=== PATIENT | male | born 1985 | race Caucasian/White ===

== ENCOUNTER 2016-10-31 13:17 | Emergency (ER) | payer MEDICAID ==
--- NOTE | 2016-10-31 13:15 | EDPHY ---
H & P Time Seen by Provider: 10/31/16 13:27 HPI/ROS: CHIEF COMPLAINT: M1 hold HISTORY OF PRESENT ILLNESS: This patient is a 31-year-old male with history of depression and anxiety who presents to the Emergency Department via EMS from the [facility] under M1 hold for acute suicidal ideation. He has a history of hospitalizations for suicidal ideation since age 11. He was seen by his psychiatrist this morning and referred to the Crisis Center for acute thoughts of harming himself. He states that he would overdose if given the opportunity. He has attempted to overdose in the past but never "on the right medication." He has a history of alcohol abuse and recently relapsed, though his last drink was Friday. He has been compliant with his current medications and denies any recent changes to medications within the last few weeks. He has been sick recently with a chronic productive cough. He also complains of indigestion and heartburn not appropriately managed with use of Tums. He has no additional focal medical complaints. REVIEW OF SYSTEMS: Constitutional: No fever, no chills Eyes: No visual changes ENT: No sore throat Respiratory: No cough, no shortness of breath Cardiac: No chest pain Gastrointestinal: No nausea, no vomiting, no abdominal pain Genitourinary: No hematuria, no dysuria Musculoskeletal: No leg pain or swelling Skin: No rash Neurological: No headache, no numbness, no weakness Psychiatric: No depression Past Medical/Surgical History: Depression and anxiety Social History: History of alcoholism Physical Exam: General Appearance: Alert, no distress Eyes: Pupils equal and round, no conjunctival pallor or injection ENT, Mouth: Mucous membranes moist Neck: Normal inspection Respiratory: Lungs are clear to auscultation Cardiovascular: Regular rate and rhythm Gastrointestinal: Abdomen is soft and non- tender Neurological: A&O, nonfocal, normal gait Skin: Warm and dry, no rash Extremities: Nontender, no pedal edema Psychiatric: Mood and affect normal Constitutional: Initial Vital Signs Temperature (C) 37 C 10/31/16 13:40 Heart Rate 98 10/31/16 13:40 Respiratory Rate 16 10/31/16 13:40 Blood Pressure 146/92 H 10/31/16 13:40 O2 Sat (%) 92 10/31/16 13:40 O2 Delivery Mode Room Air Allergies/Adverse Reactions: No Known Allergies Allergy (Verified 09/12/15 13:37) Home Medications: Medication Instructions Recorded Gabapentin 02/25/16 LAMOTRIGINE 02/25/16 Latuda 02/25/16 Lorazepam 02/25/16 Medical Decision Making ED Course/Re-evaluation: 31-year-old male with history of depression and anxiety presents under M1 hold from the Crisis Center for acute thoughts of suicide. He reports a plan to overdose, which apparently has been his chose method in the past. He additionally complains of ongoing productive cough and indigestion. He is [ afebrile] with normal vitals signs at time of presentation. His exam is normal apart from reported SI. Will proceed with labs and UA for medical clearance prior to mental health evaluation. 1412: Labs reviewed and are unremarkable. UA tox screen is positive for marijuana and benzodiazepines, which is aligned with the patient's reported history. He is medically cleared by myself at this time for mental health evaluation. 4pm: this pt was seen by mental health. Looking for inpt mental health placement. Differential Diagnosis: Differential diagnosis includes though it is not limited to suicidal ideation, overdose, acute psychosis, self-injury, alcohol withdrawal. - Data Points Laboratory Results: Laboratory Results 10/31/16 13:24 10/31/16 13:24 10/31/16 10/31/16 10/31/16 13:24 13:24 13:24 WBC 8.23 10^3/uL 10^3/uL (3.80-9.50) RBC 5.81 10^6/uL 10^6/uL (4.40-6.38) Hgb 16.8 g/dL g/dL (13.7-17.5) Hct 49.3 % % (40.0-51.0) MCV 84.9 fL fL (81.5-99.8) MCH 28.9 pg pg (27.9-34.1) MCHC 34.1 g/dL g/dL (32.4-36.7) RDW 12.8 % % (11.5-15.2) Plt Count 218 10^3/uL 10^3/uL (150-400) MPV 10.0 fL fL (8.7-11.7) Neut % (Auto) 68.1 % % (39.3-74.2) Lymph % (Auto) 22.1 % % (15.0-45.0) [place] % (Auto) 6.3 % % (4.5-13.0) Eos % (Auto) 2.3 % % (0.6-7.6) Baso % (Auto) 0.5 % % (0.3-1.7) Nucleat RBC Rel Count 0.0 % % (0.0-0.2) Absolute Neuts (auto) 5.60 10^3/uL 10^3/uL (1.70-6.50) Absolute Lymphs (auto) 1.82 10^3/uL 10^3/uL (1.00-3.00) Absolute Monos (auto) 0.52 10^3/uL 10^3/uL (0.30-0.80) Absolute Eos (auto) 0.19 10^3/uL 10^3/uL (0.03-0.40) Absolute Basos (auto) 0.04 10^3/uL 10^3/uL (0.02-0.10) Absolute Nucleated RBC 0.00 10^3/uL 10^3/uL (0-0.01) Immature Gran % 0.7 % % (0.0-1.1) Immature Gran # 0.06 10^3/uL 10^3/uL (0.00-0.10) Sodium 139 mEq/L mEq/L (134-144) Potassium 3.5 mEq/L mEq/L (3.5-5.2) Chloride 99 mEq/L mEq/L (97-110) Carbon Dioxide 27 mEq/l mEq/l (22-31) Anion Gap 13 mEq/L mEq/L (8-16) BUN 19 mg/dL mg/dL (7-23) Creatinine 0.9 mg/dL mg/dL (0.7-1.3) Estimated GFR > 60 Glucose 103 mg/dL H mg/dL (70-100) Calcium 9.8 mg/dL mg/dL (8.5-10.4) Urine Opiates Screen NEGATIVE (NEGATIVE) Urine Barbiturates NEGATIVE (NEGATIVE) Ur Phencyclidine Scrn NEGATIVE (NEGATIVE) Ur Amphetamine Screen NEGATIVE (NEGATIVE) U Benzodiazepines Scrn NON-NEGATIVE H (NEGATIVE) Urine Cocaine Screen NEGATIVE (NEGATIVE) U Marijuana (THC) Screen NON-NEGATIVE H (NEGATIVE) Ethyl Alcohol < 10 mg/dL mg/dL (0-10) Medications Given: Discontinued Medications Lorazepam (Ativan) 1 mg PO EDNOW ONE Stop: 10/31/16 13:47 Last Admin: 10/31/16 13:52 Dose: 1 mg Departure - Departure Disposition: Other Psych, Not [facility] Clinical Impression: Suicidal ideation, Severe major depression Condition: Good Referrals: NONE *PRIMARY CARE P,. [Unknown] - As per Instructions Report Scribed for: Mimi Bailey Report Scribed by: Marleni Greco Date of Report: 10/31/16 Time of Report: 13:15 Physician Review and Approval Statement: 10/31/16 13:15 Portions of this note were transcribed by a certified medical dosimetrist. I personally performed a history, physical exam, medical decision making, and confirmed accuracy of information the transcribed note.
[2016-10-31] MEDS ORDERED: LORazepam 1 MG TAB PO ONE (13:46)
[2016-10-31 14:00] LABS: % IMMATURE GRANULYOCYTES 0.7 % (0.0-1.1); ABSOLUTE IMMATURE GRANULOCYTES 0.06 10^3/uL (0.00-0.10); ADD DIFF? NO; ADD MORPH? NO; ADD SCAN? NO; ATYPICAL LYMPHOCYTE FLAG 10 (0-99); FRAGMENT RBC FLAG 0 (0-99); HEMATOCRIT 49.3 % (40.0-51.0); HEMOGLOBIN 16.8 g/dL (13.7-17.5); LEFT SHIFT FLG 0 (0-99); LIPEMIA HEMOLYSIS FLAG 90 (0-99); MEAN CELL HEMOGLOBIN 28.9 pg (27.9-34.1); MEAN CELL HEMOGLOBIN CONCENTR. 34.1 g/dL (32.4-36.7); MEAN CELL VOLUME 84.9 fL (81.5-99.8); PLATELET CLUMPS FLAG 0 (0-99); PLATELET COUNT 218 10^3/uL (150-400); RED BLOOD CELL COUNT 5.81 10^6/uL (4.40-6.38); RED CELL DISTRIBUTION WIDTH 12.8 % (11.5-15.2)
[2016-10-31 14:06] LABS: ANION GAP 13 mEq/L (8-16); CALCIUM 9.8 mg/dL (8.5-10.4); CARBON DIOXIDE 27 mEq/l (22-31); CHLORIDE 99 mEq/L (97-110); CREATININE 0.9 mg/dL (0.7-1.3); ETHANOL SERUM < 10 mg/dL (0-10); GLOMERULAR FILTRATION RATE > 60; GLUCOSE 103 mg/dL (70-100); POTASSIUM 3.5 mEq/L (3.5-5.2); SODIUM 139 mEq/L (134-144)
[2016-10-31] MEDS ORDERED: LIDOCAINE 2% VISCOUS 15 ML UDCUP PO ONE (17:54)
[2016-10-31] MEDS ORDERED: NICOTINE 14 MG/24 HR PATCH TD ONE (17:55)
[2016-10-31] MEDS ORDERED: MAG HYDROX/AL HYDROX/SIMETH 30 ML UDCUP PO ONE (17:55)
[2016-10-31] MEDS ORDERED: PANTOPRAZOLE SODIUM 40 MG TAB PO ONE ×2 (19:52→19:55)
[2016-10-31 20:08] VITALS: BP 139/87; PULSE 82; RESP 18; TEMP 97.9; O2SAT 95
== END 2016-10-31 20:12 ==
LOC: EDUNIT#
DX: R45.851 Suicidal ideations (principal); F32.2 Major depressive disorder, single episode, severe without psychotic features
CPT/HCPCS: 80305; G0480

== ENCOUNTER 2018-01-24 02:08 | Inpatient (IN) | payer MEDICAID, OTHER ==
[2018-01-24] MEDS ORDERED: OLANZapine DISINTEGR 10 MG TAB ONE (03:21)
[2018-01-24] MEDS ORDERED: OLANZapine DISINTEGR 10 MG TAB PO ONE ×2 (03:22→21:47)
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
[2018-01-24 03:34] LABS: PLATELET COUNT 286 10^3/uL (150-400)
[2018-01-24] MEDS ORDERED: LORazepam 1 MG TAB ONE ×2 (09:30→13:53)
[2018-01-24] MEDS ORDERED: LORazepam 1 MG TAB PO ONE ×3 (09:32→19:08)
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
--- NOTE | 2018-01-25 10:10 | ASMTTCLDSP ---
TLC Discharge Disposition Disposition: Answers: Admit Disposition Notes: Notes: Medicaid authorization has been received for the following days: 01/25/18, 01/26/18 and 01/27/18. On 01/27 contact Janet at [phone]. Auth# [id number] Discharge Concerns/Recommendations: Notes: In consultation with [facility] ED physician, Dr Leonard MD ,and on-call psychiatrist, Dr Matt MD, both concurred that Pt does not appears to meet 27-65 criteria requiring psychiatric hospitalization as pt does not appear to be at risk of harm to self/ others/ due to grave disability due to a mental illness condition. It has been recommended by Dr Gutierrez that pt could benefit from the treatment an ATU will offer and authorization from Medicaid for an ATU has been received. Was patient given the Answers: Yes Inpatient Behavioral Health Prohibited Belongings List while in the ED? For inpatient Dr Matt MD admission, the following psychiatrist agreed to accept patient for admission to Behavioral Health ([facility]): Date Signed: 01/25/2018 10:09 AM Electronically Signed By:Kat Conde
[2018-01-25] MEDS ORDERED: MAG HYDROX/AL HYDROX/SIMETH 30 ML UDCUP PO PRN (11:13)
[2018-01-25] MEDS ORDERED: ACETAMINOPHEN 325 MG TAB PO PRN (11:13)
[2018-01-25] MEDS ORDERED: MAGNESIUM HYDROXIDE 30 ML UDCUP PO PRN (11:13)
--- NOTE | 2018-01-25 11:13 | ASMTBHMTP ---
Master Treatment Plan Master Treatment Plan Answers: Depressed Mood with for: Suicidal Ideation Date: 01/25/2018 Diagnosis on Admission: Bipolar Disorder, PTSD, and social anxiety Expected length of stay: 3-5 Days Reason for admission: Notes: Per [facility] Evaluation - Pt. is a 32 year old male who came to the ED voluntarily, by taxi. He had initially gone to the [facility]'s detox program. Per ED physician's report, the pt presented with SI, without a plan. He expressed anger and agitation and was given a dose of Zyprexa with improvement in his symptoms. Pt. sat on his bed during the evaluation. He was calm, responded to all questions without an increase in agitation and was often tearful. Several times he spoke of feeling overwhelmed and not knowing what he was going to do; at these times he consistently cried. Per pt he normally lives with his 2 younger children and their mother. He describes his as ill with severe depression that is not well treated. he learned during therapy that he is not able to care for both his and children. They were having a great deal of conflict and pt told his that they could no longer parent together and that she needed to move in with family. His moved next door and he reports daily fighting that lasted for 3 weeks. Last night he decided that the situation was not healthy for the children and decided to leave, saying goodbye to them. He went to a friend's ; they drank, then his friend too him to the [facility]. Pt. reports a significant depressive mood; "I'm more depressed than ever". He stated he is not sleeping or eating well, he has no interest or the energy to interact with others, periods of crying, mood lability and hopelessness. He reports pervasive thoughts of dying since he was 11 years old. He has made somewhat disorganized attempts, drinking and taking pills. When asked how he would kill himself if he decided to, he again spoke of pill and of find and killing himself with a gun, but denied any present intent or plan. He asked to be hospitalized. Patient's stated presenting problems: Notes: is currently in a depressive episode, and they are not agreeing on how to get better. Pt. stated he came into the hospital for help with everything. Patient's goals for treatment: Notes: Setup as many outpatient services as possible and get on helpful medications. Patient's strengths: Notes: There's a good person in here somewhere Identify supports outside of hospital: Notes: [facility] outpatient providers Discharge criteria: Notes: Suicidal ideation will resolve and patient will have a plan to safely manage recurrent suicidal ideation. Initial disposition plan/considerations: Notes: Get as many outpatient services as possible setup, and possibly stay at a respite or mental health/substance use treatment center. Master Treatment Plan Required Signatures Psychiatrist signature: Answers: Lonny Gutierrez MD: RN on-shift signature: Answers: RN: Patient signature: Answers: Patient: Date Signed: 01/25/2018 11:13 AM Electronically Signed By:Lynn Menon
[2018-01-25] MEDS ORDERED: PROMETHAZINE HCL 25 MG TAB PO PRN (11:16)
[2018-01-25] MEDS ORDERED: IBUPROFEN 200 MG TAB PO PRN (11:16)
[2018-01-25] MEDS ORDERED: chlordiazePOXIDE 25 MG CAP PO PRN (11:16)
[2018-01-25] MEDS ORDERED: THIAMINE HCL 100 MG TAB PO ONE (11:16)
[2018-01-25] MEDS ORDERED: PROMETHAZINE HCL 25 MG SUPPR PR PRN (11:16)
[2018-01-25] MEDS: OLANZapine DISINTEGR 10 MG TAB PO PRN ×2 (12:50→19:20)
--- NOTE | 2018-01-25 14:00 | PDMN ---
Medical Necessity Medical necessity: [facility] [place] B013IP PTSD Adult IP care and B903IP Substance related d/ o, IP care: 32 y/o w/ PTSD, etoh use disorder, hx ECT treatments,
[2018-01-25] MEDS: NICOTINE POLACRILEX 2 MG GUM B PRN ×2 (14:14→19:20)
--- NOTE | 2018-01-25 14:15 | PDHOSCONS ---
History and Physical - Chief Complaint "I am beyond sad" - History of Present Illness 32 year old man who reports hs of bipolar, PTSD, aDHD, social anxiety and alcohol abuse presenting with multiple complaints around his current home life and feeling overwhelmingly sad and afraid that he would hurt himself. He notes she has been in an "IOP" but states that it is not focused on substance abuse but rather on trauma. He States that overall the biggest issues he is dealing with his the relationship with his , he feels she is not taking care o herself and has been doing various things to undermine him including calling the benefits office to attempt to get him off of the food stamps and other things, he believes she is stealing from him and has been unable to even care for herself in ways like bathing. He currently lives with her and their 2 children aged 2.5 and 8 and he is no longer sure he can live with her anymore. He went to the crisis center today as he was afraid that if he did not do that he would kill himslef. He notes he has tried killing himself before by overdosing on alcohol and pills, and his current plan [place] heroin and believes he could easily OD and from that. He does not usually use heroin per his report. He notes that he is so far beyond sad that he is 'ready not to be conscious in this life anymore' but acknowledges that he is conflicted about that as he does not want to leave his children. In terms of his health otherwise, he notes that he has been dealing with a bout of bronchitis recently, he recently completed a course of azithromycin. He was given inhalers but when they did not work in the first day he stopped using them. He continues to feel congested and has a productive cough. No fever or chils, no difficulyt breathing. History Information - Allergies/Home Medication List Allergies/Adverse Reactions: No Known Allergies Allergy (Verified 01/24/18 02:17) Home Medications: Dextroamphetamine/Amphetamine [Adderall Xr 30 mg Capsule] 60 mg PO DAILY [Last Taken 01/23/18] [place] Carbonate [[place] Carbonate Cap 300 mg (*)] 300 mg PO 01/25/18 [Last Taken Unknown] I have personally reviewed and updated: family history, medical history, social history, surgical history - Past Medical History psychiatric history (ADHD, bipolar, PTSD, anxiety) - Surgical History Reports: no pertinent surgical hx - Social History Smoking Status: Heavy smoker Alcohol Use: Heavy Drug Use: None Review of Systems Review of Systems: ROS: 10pt was reviewed & negative except for what was stated in HPI & below Physical Exam Physical Exam: Temp Pulse Resp BP Pulse Ox 36.6 C 64 16 118/73 96 01/25/18 13:03 01/25/18 13:03 01/25/18 13:03 01/25/18 13:03 01/25/18 13:03 Constitutional: no apparent distress, appears nourished Eyes: PERRL Ears, Nose, Mouth, Throat: moist mucous membranes, hearing normal Cardiovascular: regular rate and rhythym, no murmur, rub, or gallop Respiratory: no respiratory distress, no rales or rhonchi, clear to auscultation Gastrointestinal: normoactive bowel sounds, soft, non-tender abdomen Skin: warm Musculoskeletal: full muscle strength Neurologic: AAOx3 Psychiatric: not encephalopathic, thought process linear, depressed, suicidal ideation Lab Data & Imaging Review 01/24/18 02:37 01/24/18 02:37 WBC 9.68 10^3/uL (3.80-9.50) H 01/24/18 02:37 RBC 5.86 10^6/uL (4.40-6.38) 01/24/18 02:37 Hgb 16.9 g/dL (13.7-17.5) 01/24/18 02:37 Hct 49.7 % (40.0-51.0) 01/24/18 02:37 MCV 84.8 fL (81.5-99.8) 01/24/18 02:37 MCH 28.8 pg (27.9-34.1) 01/24/18 02:37 MCHC 34.0 g/dL (32.4-36.7) 01/24/18 02:37 RDW 14.8 % (11.5-15.2) 01/24/18 02:37 Plt Count 286 10^3/uL (150-400) 01/24/18 02:37 MPV 10.4 fL (8.7-11.7) 01/24/18 02:37 Neut % (Auto) 61.0 % (39.3-74.2) 01/24/18 02:37 Lymph % (Auto) 27.1 % (15.0-45.0) 01/24/18 02:37 [place] % (Auto) 6.9 % (4.5-13.0) 01/24/18 02:37 Eos % (Auto) 3.9 % (0.6-7.6) 01/24/18 02:37 Baso % (Auto) 0.5 % (0.3-1.7) 01/24/18 02:37 Nucleat RBC Rel Count 0.0 % (0.0-0.2) 01/24/18 02:37 Absolute Neuts (auto) 5.90 10^3/uL (1.70-6.50) 01/24/18 02:37 Absolute Lymphs (auto) 2.62 10^3/uL (1.00-3.00) 01/24/18 02:37 Absolute Monos (auto) 0.67 10^3/uL (0.30-0.80) 01/24/18 02:37 Absolute Eos (auto) 0.38 10^3/uL (0.03-0.40) 01/24/18 02:37 Absolute Basos (auto) 0.05 10^3/uL (0.02-0.10) 01/24/18 02:37 Absolute Nucleated RBC 0.00 10^3/uL (0-0.01) 01/24/18 02:37 Immature Gran % 0.6 % (0.0-1.1) 01/24/18 02:37 Immature Gran # 0.06 10^3/uL (0.00-0.10) 01/24/18 02:37 Sodium 143 mEq/L (135-145) 01/24/18 02:37 Potassium 3.6 mEq/L (3.3-5.0) 01/24/18 02:37 Chloride 106 mEq/L (97-110) 01/24/18 02:37 Carbon Dioxide 23 mEq/l (22-31) 01/24/18 02:37 Anion Gap 14 mEq/L (8-16) 01/24/18 02:37 BUN 11 mg/dL (7-23) 01/24/18 02:37 Creatinine 0.8 mg/dL (0.7-1.3) 01/24/18 02:37 Estimated GFR > 60 01/24/18 02:37 Glucose 106 mg/dL (70-100) H 01/24/18 02:37 Calcium 9.1 mg/dL (8.5-10.4) 01/24/18 02:37 Total Bilirubin 0.5 mg/dL (0.1-1.4) 01/24/18 02:37 AST 23 IU/L (17-59) 01/24/18 02:37 ALT 33 IU/L (21-72) 01/24/18 02:37 Alkaline Phosphatase 59 IU/L (38-126) 01/24/18 02:37 Total Protein 6.6 g/dL (6.3-8.2) 01/24/18 02:37 Albumin 4.3 g/dL (3.5-5.0) 01/24/18 02:37 Urine Opiates Screen NEGATIVE (NEGATIVE) 01/24/18 02:40 Urine Barbiturates NEGATIVE (NEGATIVE) 01/24/18 02:40 Ur Phencyclidine Scrn NEGATIVE (NEGATIVE) 01/24/18 02:40 Ur Amphetamine Screen NEGATIVE (NEGATIVE) 01/24/18 02:40 U Benzodiazepines Scrn NEGATIVE (NEGATIVE) 01/24/18 02:40 Urine Cocaine Screen NEGATIVE (NEGATIVE) 01/24/18 02:40 U Marijuana (THC) Screen NEGATIVE (NEGATIVE) 01/24/18 02:40 Ethyl Alcohol 216 mg/dL (0-10) H 01/24/18 02:37 Assessment & Plan Assessment: Depression (Acute) Bipolar disorder (Acute) 32 yo M with hx of reportedly bipolar d/o presenting with depression and suicidal ideation #depressed mood nos/suicidal ideation: patient notes feeling afraid he may kill himself and reports of worsening mood due to issues regarding his current situation and family life. Admitted to IP psychiatry for full psychiatric evaluation, at this point do not see any reason why patient cannot pursue any treatment felt appropriate by primary service # acute bronchitis: lungs sound clear and overall suspect this was likely viral bronchitis that is resolving, will start combivent and follow sxs, if not continuing to improve or if fever recurs would obtain f/u chest xray # etoh use disorder: patient connected wtih [facility] and reports being in IOP, would certainly benefit from that, CM to follow # Thank you for this consultation. Medicine will be available peripherally should questions arise during Jose' stay.
[2018-01-25] MEDS: IPRATROPIUM/ALBUTEROL 4GM MDI IH SCH ×3 (14:30→20:19)
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
[2018-01-26] MEDS: IPRATROPIUM/ALBUTEROL 4GM MDI IH SCH ×4 (07:01→19:41)
[2018-01-26] MEDS: FOLIC ACID 1 MG TAB PO SCH (08:13)
[2018-01-26] MEDS: OLANZapine DISINTEGR 10 MG TAB PO PRN ×2 (08:14→11:33)
[2018-01-26] MEDS: THIAMINE HCL 100 MG TAB PO SCH (08:14)
[2018-01-26] MEDS: MULTIVITAMINS 1 EACH TAB PO SCH (08:16)
[2018-01-26] MEDS: NICOTINE POLACRILEX 2 MG GUM B PRN ×2 (08:17→16:59)
--- NOTE | 2018-01-26 10:57 | SOAPPROG ---
SOAP Progress Note Assessment/Plan: Assessment: Bipolar I Disorder, Severe. Alcohol use disorder, severe. Cannabis use disorder, severe. No improvement noted. (see subjective/objective note). Patient is not safe to discharge at this time as patient continues to exhibit signs of randa, and express randa symptoms. Patient requires continued inpatient care because of current randa, and requires inpatient level of care to stabilize in order to no longer be gravely disabled due to mental illness. Patient could benefit from continued inpatient hospitalization for crisis stabilization, safety, and medication evaluation. Plan: (1) Psychotropic medications: After reviewing options, risks, and benefits patient agrees to continue current medications with following changes: Zyprexa Zydis 10 mg po QHS and [place] ER 600 mg BID. No other medication changes at this time as more time is needed to determine ongoing tolerability and efficacy. Plan is to continue to observe patient for response and side effects from medications, and ongoing monitoring and evaluation. (2) Review with patient informed consent and recommendations for psychotropic medication treatment listed below (3) Labs: lithium level AM prior to AM dose, A1c, fasting lipid panel (4) Therapy: continue milieu and group therapy (5) Further investigation including gathering information from patients relatives and review of past case records to inform treatment plan. (6) Safety/Wellness plan and follow-up outpatient appointments to be established prior to discharge. Next steps are for patient to meet with caretaker grounds to plan a safe discharge plan and establish outpatient services for ongoing treatment. (7) Confer with inpatient treatment team regarding treatment plan. (8) Legal status: M1; to sign in voluntary when M1 expires (9) Consider discharge on if patient is in stable condition, safe, and has a safe discharge plan. (10) Substance abuse interventions: alcohol and cannabis PSYCHOTROPIC MEDICATION TREATMENT INFORMED CONSENT and RECOMMENDATIONS: Review nature of condition, diagnosis, and prognosis. Review nature and purpose of psychotropic medication treatment. Review type of psychotropic medications being ordered. Review risk and benefits of psychotropic medication treatment. Review probable length of time patient will need to take medications. Review risk and benefits of not undergoing psychotropic medication treatment. Review alternative treatments to psychotropic medications. Review psychotropic medications contraindications, drug-drug interactions, side effects, and importance of reporting any side effects to a psychiatric provider or nurse during inpatient hospitalization, and upon discharge to patients psychiatric outpatient provider, primary care provider, or other health primary care nurse. Review importance of asking a nurse, psychiatric provider, or primary care provider any questions or problems concerning the psychotropic medications. Verify patient understands the information that has been provided, and understands, accepts, and agrees to psychotropic medications. Review patients safety plan and importance of patient to report to staff while hospitalized if patient is ever a danger to self/others, or unable to care for self, and upon discharge, the importance for patient to contact [facility] or [facility], or go to the nearest emergency room, if patient is ever a danger to self/others, or unable to care for self. Recommend that upon discharge patient establish medication management treatment with a psychiatric provider, establishes routine therapy appointments, and follow-up with primary care provider. Verify patient understands and agrees to these recommendations. 01/26/18 10:59 Subjective: Following up with patient for evaluation of mood and safety. Patient reports, "Not feeling good today, a lot of anxiety. Racing thoughts all the time, cant sleep, dangerously irritable, anxiety." Patient expresses the following psychiatric symptoms decreased need for sleep, irritability, racing thoughts. Patient reports taking medications as prescribed, and describes response to medications as poor. Patient does not report undesirable side effects from the medications, and agrees to continue current medications. Patient reports appetite as good, and reports eating all meals. Patient describes getting 1-2 hours of sleep. Patient describes history of randa s/s including irritable and expansive mood, decreased sleep, racing thoughts, pressured speech, distractible , and substance abuse (risky behaviors). Patient reports his OP psychiatrist was discussing with him starting lithium. Patient agrees to trial of Zyprexa Zydis 10 mg po QHS and lithium ER 600 mg po QHS. Objective: Vital Signs Temp Pulse Resp BP Pulse Ox 36.5 C 60 14 119/64 95 01/26/18 06:00 01/26/18 06:00 01/26/18 06:00 01/26/18 06:00 01/26/18 06:00 NURSING REPORT: Consulted with nursing for update on patients progress in treatment. Nurses report patient is engaged in treatment, is not attending groups, slept 10 hours, expresses the following psychiatric symptoms: irritable , racing thoughts, reports feeling on edge; exhibits the following psychiatric symptoms: irritable, agitated, is eating all meals, is agreeable to medications and taking as prescribed with no report of side effects, with no s/s of EPS/ akathisia, and denies SI/HI, denies A/V hallucinations, and denies delusions. HAND MOLD MAKER UPDATE: setting up OP appointments and referrals for substance abuse treatment. MSE: The patient is a well-nourished male looking older than chronological age. Attire is appropriate and dress is casual. Grooming status is appropriate. Ambulation is independent. Gait is normal and coordinated. Posture is normal and relaxed. Eye contact is appropriate. Motor activity is appropriate with purposeful, organized, coordinated movements; with no involuntary movements. Attitude is cooperative and friendly. Patient appears distractible and does not relate well to this interviewer. Language production is spontaneous. Rate is pressured. Latency of response is shortened, with irritable tone, and high volume, and amount is hypertalkative. Articulation is clear. Patient reports mood as depressed with expansive, incongruent and inappropriate affect. Patients thought process is non-linear and tangential. Associations are loose. Patient does report SI with no plan; denies HS. Patient denies auditory, visual hallucinations. Patient denies delusions. Patient does not appear to be attending to internal stimuli. Patients attention and concentration are poor. Patient is oriented to person, place, time. Patients insight is poor. Patients judgment is poor. No evidence of/evidence of gross cognitive dysfunction at any point during the interview. No evidence of/evidence of apparent dysfunction in recent or remote memory. SUBSTANCE ABUSE BRIEF INTERVENTION: Brief intervention regarding the risks of alcohol and cannabis abuse is provided to patient with goal to reduce the risk of harm that could result from the continued use of alcohol and cannabis, with the general aim to investigate the problem, raise awareness of problem, develop a solution with the patient, recommend a specific change or activity, and motivate the patient toward change. Assess substance abuse behavior and give supportive advice about harm reduction, recommend a reduction in hazardous/at- risk consumption patterns, and facilitate referrals for additional specialized treatment with med care manager. Intermediate goal is for the patient to stop using alcohol and cannabis and attend OP substance abuse treatment. Intervention focus on intermediate goals to allow for more immediate success in the treatment process to keep the patient motivated. Review following with patient: Cannabis use risks: Short-term use: impaired short-term memory, impaired motor coordination, altered judgement, in high doses paranoia and psychosis. Long-term use addiction, diminished life satisfaction and achievement, symptoms of chronic bronchitis, and increased risk of chronic psychosis disorders if predisposition to such disorders. In withdrawal anger, aggression irritability, anxiety and nervousness, decreased appetite or weight loss, restlessness, and sleep difficulties with strange dreams. Alcohol/Binge Drinking risks: short-term: injuries, violence, alcohol poisoning, risky sexual behaviors. Long-term: high blood pressure, stroke, liver disease, digestive problems, cancer, learning and memory problems, depression and anxiety, social problems, and alcohol dependence. - Time Spent With Patient Time Spent With Patient: 25 minutes, met with patient individually. - Pending Discharge Pending Discharge Within 24 Hours: No Pending Discharge Within 48 Hours: No ICD10 Worksheet Patient Problems: Problems Problem Status Onset Bipolar disorder Acute Depression Acute
[2018-01-26] MEDS: LITHIUM CARBONATE ER 300 MG TAB PO SCH ×2 (11:34→19:41)
--- NOTE | 2018-01-26 12:43 | ASMTCMCOM ---
CM Note CM Note Notes: met with patient check in, patient noted isolating teary today. He states that he has had multiple psychosocial factors he feels are threatening his children and contributing to his mood and safety. Pt admits to a 1/10 scale of feelings of anxiety/depression/ suicidallity that he is at a 7 or 8 and would like to be more stable to a 3 or 4 he notes his support system is his tx team, and states that he has been in contact with them that they have offered him some alternatives when he discharges. Pt requests assistance receiving JUAN DIEGO from his CM Yocasta Marsh or Jessica Holly so he can have some contact with his family. Provided pt with blank JUAN DIEGO from [facility] and reported stated si to nursing staff. Date Signed: 01/26/2018 12:42 PM Electronically Signed By:Sabra Cooper
[2018-01-26] MEDS: OLANZapine DISINTEGR 10 MG TAB PO SCH (19:41)
[2018-01-27] MEDS: IPRATROPIUM/ALBUTEROL 4GM MDI IH SCH ×4 (06:38→18:30)
--- NOTE | 2018-01-27 08:06 | SOAPPROG ---
SOAP Progress Note Assessment/Plan: Assessment: Bipolar I Disorder, Severe, complicated by substance abuse. Alcohol use disorder, severe. Cannabis use disorder, severe. Slight improvement noted, notably improved sleep (see subjective/objective note). Patient is not safe to discharge at this time as patient continues to exhibit signs of randa, and express randa symptoms. Patient requires continued inpatient care because of current randa, and requires inpatient level of care to stabilize to no longer be gravely disabled due to mental illness. Patient could benefit from continued inpatient hospitalization for crisis stabilization, safety, and medication evaluation. Plan: (1) Psychotropic medications: After reviewing options, risks, and benefits patient agrees to continue current medications with following changes: Prazosin 1 mg po QHS for nightmares. No other medication changes at this time as more time is needed to determine ongoing tolerability and efficacy. Plan is to continue to observe patient for response and side effects from medications, and ongoing monitoring and evaluation. (2) Review with patient informed consent and recommendations for psychotropic medication treatment listed below (3) Labs: lithium level AM prior to AM dose (4) Therapy: continue milieu and group therapy (5) Further investigation including gathering information from patients relatives and review of past case records to inform treatment plan. (6) Safety/Wellness plan and follow-up outpatient appointments to be established prior to discharge. Next steps are for patient to meet with manager critical care unit to plan a safe discharge plan and establish outpatient services for ongoing treatment. (7) Confer with inpatient treatment team regarding treatment plan. (8) Legal status: M1; to sign in voluntary when M1 expires (9) Consider discharge on if patient is in stable condition, safe, and has a safe discharge plan. (10) Substance abuse interventions: alcohol and cannabis PSYCHOTROPIC MEDICATION TREATMENT INFORMED CONSENT and RECOMMENDATIONS: Review nature of condition, diagnosis, and prognosis. Review nature and purpose of psychotropic medication treatment. Review type of psychotropic medications being ordered. Review risk and benefits of psychotropic medication treatment. Review probable length of time patient will need to take medications. Review risk and benefits of not undergoing psychotropic medication treatment. Review alternative treatments to psychotropic medications. Review psychotropic medications contraindications, drug-drug interactions, side effects, and importance of reporting any side effects to a psychiatric provider or nurse during inpatient hospitalization, and upon discharge to patients psychiatric outpatient provider, primary care provider, or other health pharmacy customer care specialist. Review importance of asking a nurse, psychiatric provider, or primary care provider any questions or problems concerning the psychotropic medications. Verify patient understands the information that has been provided, and understands, accepts, and agrees to psychotropic medications. Review patients safety plan and importance of patient to report to staff while hospitalized if patient is ever a danger to self/others, or unable to care for self, and upon discharge, the importance for patient to contact [facility] or [facility], or go to the nearest emergency room, if patient is ever a danger to self/others, or unable to care for self. Recommend that upon discharge patient establish medication management treatment with a psychiatric provider, establishes routine therapy appointments, and follow-up with primary care provider. Verify patient understands and agrees to these recommendations. 01/27/18 08:07 Subjective: Following up with patient for evaluation of mood and safety. Patient reports, "Not doing too good, slept better last night, but a lot of nightmares. My daughter did not want to talk to me last night, super depressed about that. Not sure what my ex is telling her. I did sleep better last night though. Medications are working." Patient expresses the following psychiatric symptoms irritable, agitated, and nightmares. Patient reports taking medications as prescribed, and describes response to medications as poor. Patient does not report undesirable side effects from the medications, and agrees to continue current medications. Patient reports appetite as good, and reports eating all meals. Patient describes getting 6 hours of sleep. Patient agrees to trial of Prazosin 1 mg po QHS for nightmares. Patient does not report SI. Objective: Vital Signs Temp Pulse Resp BP Pulse Ox 36.6 C 70 14 139/71 H 96 01/27/18 06:00 01/27/18 06:00 01/27/18 06:00 01/27/18 06:00 01/27/18 06:00 NURSING REPORT: Consulted with nursing for update on patients progress in treatment. Nurses report patient is engaged in treatment, is not attending groups, slept 9.5 hours, expresses the following psychiatric symptoms: irritable , reports feeling on edge; exhibits the following psychiatric symptoms: irritable, agitated; is eating all meals, is agreeable to medications and taking as prescribed with no report of side effects, with no s/s of EPS/ akathisia, and denies SI/HI, denies A/V hallucinations, and denies delusions. ORDER EXPEDITER UPDATE: setting up OP appointments and referrals for substance abuse treatment. MSE: The patient is a well-nourished male looking older than chronological age. Attire is appropriate and dress is casual. Grooming status is appropriate. Ambulation is independent. Gait is normal and coordinated. Posture is normal and relaxed. Eye contact is appropriate. Motor activity is appropriate with purposeful, organized, coordinated movements; with no involuntary movements. Attitude is cooperative and friendly. Patient appears distractible and does not relate well to this interviewer. Language production is spontaneous. Rate is pressured. Latency of response is shortened, with irritable tone, and high volume, and amount is normal. Articulation is clear. Patient reports mood as depressed with expansive, incongruent and inappropriate affect. Patients thought process is non-linear and tangential. Associations are loose. Patient does not report SI/HI. Patient denies auditory, visual hallucinations. Patient denies delusions. Patient does not appear to be attending to internal stimuli. Patients attention and concentration are poor. Patient is oriented to person, place, time. Patients insight is poor. Patients judgment is poor. No evidence of gross cognitive dysfunction at any point during the interview. No evidence of apparent dysfunction in recent or remote memory. SUBSTANCE ABUSE BRIEF INTERVENTION: Brief intervention regarding the risks of alcohol and cannabis abuse is provided to patient with goal to reduce the risk of harm that could result from the continued use of alcohol and cannabis, with the general aim to investigate the problem, raise awareness of problem, develop a solution with the patient, recommend a specific change or activity, and motivate the patient toward change. Assess substance abuse behavior and give supportive advice about harm reduction, recommend a reduction in hazardous/at- risk consumption patterns, and facilitate referrals for additional specialized treatment with manager critical care unit. Intermediate goal is for the patient to stop using alcohol and cannabis and attend OP substance abuse treatment. Intervention focus on intermediate goals to allow for more immediate success in the treatment process to keep the patient motivated. Review following with patient: Cannabis use risks: Short-term use: impaired short-term memory, impaired motor coordination, altered judgement, in high doses paranoia and psychosis. Long-term use addiction, diminished life satisfaction and achievement, symptoms of chronic bronchitis, and increased risk of chronic psychosis disorders if predisposition to such disorders. In withdrawal anger, aggression irritability, anxiety and nervousness, decreased appetite or weight loss, restlessness, and sleep difficulties with strange dreams. Alcohol/Binge Drinking risks: short-term: injuries, violence, alcohol poisoning, risky sexual behaviors. Long-term: high blood pressure, stroke, liver disease, digestive problems, cancer, learning and memory problems, depression and anxiety, social problems, and alcohol dependence. - Time Spent With Patient Time Spent With Patient: 15 minutes, met with patient individually. - Pending Discharge Pending Discharge Within 24 Hours: No Pending Discharge Within 48 Hours: No ICD10 Worksheet Patient Problems: Problems Problem Status Onset Alcohol use disorder, severe, dependence Acute Bipolar I disorder with randa Acute Cannabis use disorder, severe, dependence Acute
[2018-01-27] MEDS: MULTIVITAMINS 1 EACH TAB PO SCH (08:09)
[2018-01-27] MEDS: LITHIUM CARBONATE ER 300 MG TAB PO SCH ×2 (08:09→18:30)
[2018-01-27] MEDS: OLANZapine DISINTEGR 10 MG TAB PO PRN ×2 (08:09→12:59)
[2018-01-27] MEDS: FOLIC ACID 1 MG TAB PO SCH (08:10)
[2018-01-27] MEDS: THIAMINE HCL 100 MG TAB PO SCH (08:10)
[2018-01-27] MEDS: NICOTINE POLACRILEX 2 MG GUM B PRN ×2 (08:32→12:38)
--- NOTE | 2018-01-27 14:38 | ASMTCMCOM ---
CM Note CM Note Notes: CC contacted hospital liaison for follow up appts. She will get back with this sign writer hand when she is available, inquired about the possibility of having a Respite Bed. She noted, that it is on a day by day basis and as of yesterday there are no beds available. Date Signed: 01/27/2018 02:37 PM Electronically Signed By:Fernandez Monroe
[2018-01-27] MEDS: OLANZapine DISINTEGR 10 MG TAB PO SCH (18:31)
[2018-01-27] MEDS ORDERED: PRAZOSIN HCL 1 MG CAP PO SCH (21:00)
[2018-01-28 06:31] VITALS: BP 134/64
[2018-01-28] MEDS: IPRATROPIUM/ALBUTEROL 4GM MDI IH SCH (07:38)
[2018-01-28] MEDS: NICOTINE POLACRILEX 2 MG GUM B PRN (07:38)
[2018-01-28] MEDS: OLANZapine DISINTEGR 10 MG TAB PO PRN (07:38)
[2018-01-28] MEDS ORDERED: OLANZapine DISINTEGR 10 MG TAB PO SCH (07:57)
[2018-01-28] MEDS ORDERED: PRAZOSIN HCL 1 MG CAP PO SCH (07:58)
--- NOTE | 2018-01-28 08:01 | SOAPPROG ---
SOAP Progress Note Assessment/Plan: Assessment: Bipolar I Disorder, Severe, current randa, complicated by substance abuse. Alcohol use disorder, severe. Cannabis use disorder, severe. Slight improvement noted, notably improved sleep based on staff report (see subjective/ objective note). Patient is not safe to discharge at this time as patient continues to exhibit signs of randa, and express randa symptoms. Patient requires continued inpatient care because of current randa, and requires inpatient level of care to stabilize to no longer be gravely disabled due to mental illness. Patient could benefit from continued inpatient hospitalization for crisis stabilization, safety, and medication evaluation. Plan: (1) Psychotropic medications: After reviewing options, risks, and benefits patient agrees to continue current medications with following changes: Prazosin 2 mg po QHS for nightmares, Zyrexa Zydis 15 mg po QHS, and increase total Zyprexa dose in 24 hours to 35 mg for acute stabilization. No other medication changes at this time as more time is needed to determine ongoing tolerability and efficacy. Plan is to continue to observe patient for response and side effects from medications, and ongoing monitoring and evaluation. (2) Review with patient informed consent and recommendations for psychotropic medication treatment listed below (3) Labs: lithium level AM prior to AM dose (4) Therapy: continue milieu and group therapy (5) Further investigation including gathering information from patients relatives and review of past case records to inform treatment plan. (6) Safety/Wellness plan and follow-up outpatient appointments to be established prior to discharge. Next steps are for patient to meet with nursing care partner to plan a safe discharge plan and establish outpatient services for ongoing treatment. (7) Confer with inpatient treatment team regarding treatment plan. (8) Legal status: voluntary (9) Consider discharge on if patient is in stable condition, safe, and has a safe discharge plan. (10) Substance abuse interventions: alcohol and cannabis PSYCHOTROPIC MEDICATION TREATMENT INFORMED CONSENT and RECOMMENDATIONS: Review nature of condition, diagnosis, and prognosis. Review nature and purpose of psychotropic medication treatment. Review type of psychotropic medications being ordered. Review risk and benefits of psychotropic medication treatment. Review probable length of time patient will need to take medications. Review risk and benefits of not undergoing psychotropic medication treatment. Review alternative treatments to psychotropic medications. Review psychotropic medications contraindications, drug-drug interactions, side effects, and importance of reporting any side effects to a psychiatric provider or nurse during inpatient hospitalization, and upon discharge to patients psychiatric outpatient provider, primary care provider, or other health hemodialysis patient care specialist. Review importance of asking a nurse, psychiatric provider, or primary care provider any questions or problems concerning the psychotropic medications. Verify patient understands the information that has been provided, and understands, accepts, and agrees to psychotropic medications. Review patients safety plan and importance of patient to report to staff while hospitalized if patient is ever a danger to self/others, or unable to care for self, and upon discharge, the importance for patient to contact [facility] or [facility], or go to the nearest emergency room, if patient is ever a danger to self/others, or unable to care for self. Recommend that upon discharge patient establish medication management treatment with a psychiatric provider, establishes routine therapy appointments, and follow-up with primary care provider. Verify patient understands and agrees to these recommendations. 01/28/18 08:02 Subjective: Following up with patient for evaluation of mood and safety. Patient reports, "I slept horrible last night, couldn't get to sleep or stay a sleep. A bunch of nightmares and cant get control of my thoughts. Can we increase the Zyprexa ? Typically takes a higher dose for it to work for me." Patient expresses the following psychiatric symptoms racing thoughts, pressure to keep talking, irritable, agitated, poor sleep, and nightmares. Patient reports taking medications as prescribed, and describes response to medications as poor. Patient does not report undesirable side effects from the medications, and agrees to continue current medications. Patient reports appetite as good, and reports eating all meals. Patient describes getting 3-4 hours of sleep. Patient expresses SI with no specific plan. Patient states all he can think about right now is "wanting to drink" (alcohol). Patient reports no symptoms of acute alcohol withdrawal. Patient does express desire/cravings to drink. Objective: Vital Signs Temp Pulse Resp BP Pulse Ox 36.6 C 87 18 134/64 H 98 01/28/18 06:00 01/28/18 06:00 01/28/18 06:00 01/28/18 06:00 01/28/18 06:00 NURSING REPORT: Consulted with nursing for update on patients progress in treatment. Nurses report patient is engaged in treatment, is not attending groups, slept 10.5 hours, expresses the following psychiatric symptoms: irritable, racing thoughts, unable to slow down his thoughts; exhibits the following psychiatric symptoms: irritable, agitated, hypertalkative; is eating all meals, is agreeable to medications and taking as prescribed with no report of side effects, with no s/s of EPS/akathisia, and denies SI/HI, denies A/V hallucinations, and denies delusions. STAMP ANALYST UPDATE: setting up OP appointments and referrals for substance abuse treatment. MSE: The patient is a well-nourished male looking older than chronological age. Attire is appropriate and dress is casual. Grooming status is appropriate. Ambulation is independent. Gait is normal and coordinated. Posture is normal and relaxed. Eye contact is appropriate. Motor activity is appropriate with purposeful, organized, coordinated movements; with no involuntary movements. Attitude is cooperative and friendly. Patient appears distractible and does not relate well to this interviewer. Language production is spontaneous. Rate is pressured. Latency of response is shortened, with irritable tone, and high volume, and amount is hypertalkative. Articulation is clear. Patient reports mood as depressed with expansive, incongruent and inappropriate affect. Patients thought process is non-linear and tangential. Associations are loose. Patient does report SI with no plan. Patient denies HI. Patient denies auditory, visual hallucinations. Patient denies delusions. Patient does not appear to be attending to internal stimuli. Patients attention and concentration are poor, appears distractible. Patient is oriented to person, place, time. Patients insight is poor. Patients judgment is poor. No evidence of gross cognitive dysfunction at any point during the interview. No evidence of apparent dysfunction in recent or remote memory. SUBSTANCE ABUSE BRIEF INTERVENTION: Brief intervention regarding the risks of alcohol and cannabis abuse is provided to patient with goal to reduce the risk of harm that could result from the continued use of alcohol and cannabis, with the general aim to investigate the problem, raise awareness of problem, develop a solution with the patient, recommend a specific change or activity, and motivate the patient toward change. Assess substance abuse behavior and give supportive advice about harm reduction, recommend a reduction in hazardous/at- risk consumption patterns, and facilitate referrals for additional specialized treatment with children's zoo caretaker. Intermediate goal is for the patient to stop using alcohol and cannabis and attend OP substance abuse treatment. Intervention focus on intermediate goals to allow for more immediate success in the treatment process to keep the patient motivated. Review following with patient: Cannabis use risks: Short-term use: impaired short-term memory, impaired motor coordination, altered judgement, in high doses paranoia and psychosis. Long-term use addiction, diminished life satisfaction and achievement, symptoms of chronic bronchitis, and increased risk of chronic psychosis disorders if predisposition to such disorders. In withdrawal anger, aggression irritability, anxiety and nervousness, decreased appetite or weight loss, restlessness, and sleep difficulties with strange dreams. Alcohol/Binge Drinking risks: short-term: injuries, violence, alcohol poisoning, risky sexual behaviors. Long-term: high blood pressure, stroke, liver disease, digestive problems, cancer, learning and memory problems, depression and anxiety, social problems, and alcohol dependence. - Time Spent With Patient Time Spent With Patient: 20 minutes, met with patient individually. - Pending Discharge Pending Discharge Within 24 Hours: No Pending Discharge Within 48 Hours: No ICD10 Worksheet Patient Problems: Problems Problem Status Onset Alcohol use disorder, severe, dependence Acute Bipolar I disorder with randa Acute Cannabis use disorder, severe, dependence Acute
[2018-01-28] MEDS: THIAMINE HCL 100 MG TAB PO SCH (08:44)
[2018-01-28] MEDS: MULTIVITAMINS 1 EACH TAB PO SCH (08:44)
[2018-01-28] MEDS: LITHIUM CARBONATE ER 300 MG TAB PO SCH (08:44)
[2018-01-28] MEDS: FOLIC ACID 1 MG TAB PO SCH (08:44)
--- NOTE | 2018-01-28 08:57 | ASMTBHDC ---
Notes Note: Notes: CC confirmed client's discharge plan as well as his out-patient follow up appts. Follow up with: [id number] Fili Morales, [facility] [address] [place] [address] Next Appt: FridayFebruary 03 (02/03/18) at 11am with therapist Nehemiah Escobar. Next Medication Appt: FridayFebruary 06 (02/06/18) at 10am with Dr. Lyn. This appointment will be at the [address] [place] [address]. Date Signed: 01/28/2018 08:56 AM Electronically Signed By:Fernandez Monroe
--- NOTE | 2018-01-28 11:32 | ASMTBHDC ---
Notes Note: Notes: CC contacts [employer] at ([phone]) to coordinate his transportation to [facility], etc. Per dispatcher, "I can not verify client's medicaid insurance and he will need to call his case reviewer and then have them call us." CC extensively went through all the options for Medicaid to cover the [employer] with the dispatcher to no avail. CC then provided [facility] account number to confirm client's Z-trip due to the time sensitive nature of client discharging to [facility]. CC walked client off of unit and confirmed he left with [employer] with no stops. Date Signed: 01/28/2018 11:31 AM Electronically Signed By:Fernandez Monroe
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
== END 2018-01-28 11:20 | disposition home or self-care (01) | DRG 885 ==
LOC: BBEH 01-25 08:14
PROVIDERS: ADMIT Psychiatry & Neurology Psychiatry; ATTEND Psychiatry & Neurology Psychiatry
DX: F31.2 Bipolar disorder, current episode manic severe with psychotic features (principal); F10.259 Alcohol dependence with alcohol-induced psychotic disorder, unspecified; F12.259 Cannabis dependence with psychotic disorder, unspecified; T43.506A Underdosing of unspecified antipsychotics and neuroleptics, initial encounter; Z59.0 Homelessness; Z76.5 Malingerer [conscious simulation]
CPT/HCPCS: 80305; G0480